=== PATIENT | male | born 1995 | race Caucasian/White ===

== ENCOUNTER → 2020-02-17 | Outpatient (CLI) | payer OTHER, SELFPAY ==
[2020-02-17 17:34] VITALS: BMI 27.2
== END | disposition home or self-care (01) ==
LOC: LABSPEC 02-18 10:14
PROVIDERS: Referring Provider Physician Assistant; Visit Provider Physician Assistant
DX: Z20.828 Contact with and (suspected) exposure to other viral communicable diseases (principal)
CPT/HCPCS: 87635; U0003

== ENCOUNTER 2021-07-29 18:07 | Emergency (ER) | payer OTHER, SELFPAY ==
[2021-07-29 18:08] VITALS: BP 170/116; PULSE 125; RESP 22; TEMP 36.4; O2SAT 96; BMI 28.5
--- NOTE | 2021-07-29 18:36 | EX.ED.DYSGE1 ---
HPI <RHETT Rose - Last Filed: 07/29/21 19:03> History of Present Illness Chief Complaint: General Illness Narrative Narrative: 26-year-old male with no significant medical history presents to the emergency department with complaints of 2 weeks of generalized fatigue, for the last 4 days, the patient has had nausea, vomiting, intermittent fever and chills. Patient also states today he felt dizzy, feels that he is dehydrated and is here for evaluation. Patient is currently not vaccinated for COVID-19 and or influenza. Patient denies any abdominal pain. Denies any recent antibiotic use, blood in stool or vomit. PFSH <RHETT Rose - Last Filed: 07/29/21 19:03> [facility] Home Medications amoxicillin-pot clavulanate [Augmentin] 1 tab PO BID 07/29/21 [History Last Taken Unknown] ondansetron 4 mg PO Q6H PRN #10 tab 07/29/21 [Rx Last Taken Unknown] Allergy/AdvReac Type Severity Reaction Status Date / Time No Known Allergies Allergy Verified 07/29/21 18:08 Surgical History (Updated 07/29/21 @ 18:16 by Alexia Alvarado) History of appendectomy Social History (Updated 02/17/20 @ 17:35 by Greg FISH, PA) Smoking Status: Never smoker ROS <RHETT Rose - Last Filed: 07/29/21 19:03> ROS ED ROS Narrative Constitutional: Negative for weight loss, weakness. Positive fever and chills Eyes: Negative for vision loss, vision change, double vision ENT: Negative for any sore throat, ear pain, congestion Cardiovascular: Negative for any chest pain, tightness, palpitations, racing heartbeat Respiratory: Negative for any cough, sputum production, hemoptysis, shortness of breath, shortness of breath on exertion, orthopnea Gastrointestinal: Negative for any abdominal pain, constipation, blood in stool, blood in vomit. Positive for nausea, vomiting, diarrhea : Negative for any urinary frequency, incontinence, dysuria, retention, blood in urine Muscle skeletal: Negative for any muscle joint pain, stiffness, arthralgias, neck pain, back pain. Positive for myalgias Neurological: Negative for any headache, dizziness, syncope, numbness or tingling Skin: Negative for any rashes, lumps, itching, abrasions, lacerations Psychiatric: Negative for any depression, anxiety, stress, suicidal ideation, homicidal ideation Hematologic: Negative for any easy bruising, excessive bruising, easy bleeding Allergies: Negative for any eczema, hives, rash EXAM <RHETT Rose - Last Filed: 07/29/21 19:03> Physical Exam Narrative Exam Narrative: Vital signs reviewed. HEET: Head normocephalic atraumatic, TMs clear bilaterally. Posterior pharynx is clear, dry mucous membranes. Nares clear bilaterally. Neck: Supple with no lymphadenopathy or tenderness. No signs of meningismus, negative jolt sign. Cardiac: Tachycardia no murmurs gallops or rubs, equal peripheral pulses bilaterally. Respiratory: Lungs clear to auscultation bilaterally. No chest tenderness. Abdomen: Soft, nontender, nondistended. No abdominal bruit or pulsatile masses. No hepatosplenomegaly Extremities: No peripheral edema, no signs of gross trauma or deformity. Active full range of motion of all extremities. Neuro: Cranial nerves II through XII intact, no focal neurological deficits. Skin: Clean dry and intact with no rash, purpura, petechiae, vesicles or pustules. Backslash flank: No CVA tenderness, no midline spinal tenderness, no deformity. Psych: Normal mood and affect. No SI, HI or acute psychosis. Const Vital Signs: 07/29/21 18:08 07/29/21 18:17 07/29/21 19:28 Temperature 97.5 F L Temperature Source Temporal Pulse Rate 125 H 88 Respiratory Rate 22 H 22 H Respiratory Effort Normal Non-Labored Respiratory Pattern Normal Blood Pressure 170/116 H 147/85 H Blood Pressure Mean 134 105 Pulse Ox 96 95 Oxygen Delivery Method Room Air Room Air 07/29/21 21:02 Temperature Temperature Source Pulse Rate 90 Respiratory Rate 18 Respiratory Effort Respiratory Pattern Blood Pressure 138/83 H Blood Pressure Mean Pulse Ox 96 Oxygen Delivery Method Positive well nourished and well developed General Appearance ED: well developed <Dr. Piyush Ro, - Last Filed: 07/30/21 01:34> Physical Exam Const Vital Signs: 07/29/21 18:08 07/29/21 18:17 07/29/21 19:28 Temperature 97.5 F L Temperature Source Temporal Pulse Rate 125 H 88 Respiratory Rate 22 H 22 H Respiratory Effort Normal Non-Labored Respiratory Pattern Normal Blood Pressure 170/116 H 147/85 H Blood Pressure Mean 134 105 Pulse Ox 96 95 Oxygen Delivery Method Room Air Room Air 07/29/21 21:02 Temperature Temperature Source Pulse Rate 90 Respiratory Rate 18 Respiratory Effort Respiratory Pattern Blood Pressure 138/83 H Blood Pressure Mean Pulse Ox 96 Oxygen Delivery Method [facility] <Orion Suarez MEDICAL LABORATORY SCIENTIST-C - Last Filed: 07/29/21 19:03> [facility] Narrative Medical decision making narrative: Patient appears well, patient appears nontoxic, vital signs are stable. Patient presents to the emergency department with 1 week of generalized malaise, fatigue, 3 to 4 days of nausea, vomiting, diarrhea. Patient did receive basic laboratory values, as well as IV fluids, IV Toradol, IV Zofran. Patient will be tested for influenza as well as COVID-19. Chest x-ray will be completed. Lab Data Labs: Laboratory Results - last 24 hr 07/29/21 07/29/21 18:45 18:45 WBC 10.6 RBC 5.26 Hgb 15.6 Hct 44.2 MCV 84.0 MCH 29.7 MCHC 35.3 RDW Std Deviation 34.9 L RDW Coeff of Estefany 11.4 L Plt Count 211 MPV 10.5 Immature Gran % (Auto) 0.700 Neut % (Auto) 76.1 H Lymph % (Auto) 8.7 L [place] % (Auto) 13.5 H Eos % (Auto) 0.5 Baso % (Auto) 0.5 Absolute Neuts (auto) 8.1 H Absolute Lymphs (auto) 0.92 Nucleated RBC % 0 Sodium 134 L Potassium 3.5 Chloride 104 Carbon Dioxide 21.0 Anion Gap 9 BUN 14 Creatinine 0.95 Estim Creat Clear Calc 147.20 Est GFR (MDRD) Af Amer 125 Est GFR (MDRD) Non-Af 104 BUN/Creatinine Ratio 14.8 Glucose 111 H Calcium 9.2 Radiography Diagnostic Testing: Clinical Impression(s) from Imaging Studies Chest X-Ray 07/29/21 18:50 IMPRESSION: Nonacute portable x-ray examination of the chest. Electronically Signed: Cruzito Berkowitz MD (Brooks) at 19:05 EDT , <Dr. Piyush Ro, DO - Last Filed: 07/30/21 01:34> [facility] Narrative Medical decision making narrative: Attending note: Patient seen and evaluated with director of event management. I perform my own [id number] evaluation. I agree with the plan of work-up. 2 weeks upper respiratory illness coughing improved. However vomiting diarrhea past 4 days. No recent antibiotics. Exam dry mucosal membranes. Soft abdomen. Nontoxic. Lungs are clear. Heart is tachycardic. IV fluids given basic labs were normal. Rapid flu and COVID-negative. Chest x-ray 1 view reviewed by myself and read by radiology shows no acute process. Clinically feeling better on reevaluation. Tolerating oral fluids. Prescription for Zofran to use as needed. Follow-up as an outpatient with return precautions. All questions were answered. Lab Data Attestation: I reviewed the patient's lab results. Labs: Laboratory Results - last 24 hr 07/29/21 07/29/21 18:45 18:45 WBC 10.6 RBC 5.26 Hgb 15.6 Hct 44.2 MCV 84.0 MCH 29.7 MCHC 35.3 RDW Std Deviation 34.9 L RDW Coeff of Estefany 11.4 L Plt Count 211 MPV 10.5 Immature Gran % (Auto) 0.700 Neut % (Auto) 76.1 H Lymph % (Auto) 8.7 L [place] % (Auto) 13.5 H Eos % (Auto) 0.5 Baso % (Auto) 0.5 Absolute Neuts (auto) 8.1 H Absolute Lymphs (auto) 0.92 Nucleated RBC % 0 Sodium 134 L Potassium 3.5 Chloride 104 Carbon Dioxide 21.0 Anion Gap 9 BUN 14 Creatinine 0.95 Estim Creat Clear Calc 147.20 Est GFR (MDRD) Af Amer 125 Est GFR (MDRD) Non-Af 104 BUN/Creatinine Ratio 14.8 Glucose 111 H Calcium 9.2 Radiography Chest X-Ray - ED: 1 View, Read by ED Physician and Read by Radiologist Diagnostic Testing: Clinical Impression(s) from Imaging Studies Chest X-Ray 07/29/21 18:50 IMPRESSION: Nonacute portable x-ray examination of the chest. Electronically Signed: Cruzito Berkowitz MD (Brooks) at 19:05 EDT Reading Location ID and State: [facility] / [place] , Service support , Discharge Plan Triage Chief Complaint: General Illness ED Midlevel Provider: Orion Suarez ED Provider: Piyush Ro Dx/Rx/DC Orders Clinical Impression: URI (upper respiratory infection), Nausea vomiting and diarrhea Instructions: ED URI, Viral, No Abx (Adult), ED Vomiting and Diarrhea ... Prescriptions: New ondansetron 4 mg tablet,disintegrating 4 mg PO Q6H PRN (Reason: nausea and vomiting) Qty: 10 RF: 0 No Action amoxicillin-pot clavulanate [Augmentin] 875-125 mg Tablet 1 tab PO BID RF: 0 Primary Care Provider: Care Physician,No Primary Referrals: Anita Hart [NON-STAFF] - 3-5 Days if not improving Care Physician,No Primary [Primary Care Provider] - Activity Restrictions/Additional Instructions: Labs stable chest x-ray negative COVID and influenza negative. Continue oral fluids. Zofran as needed. Disposition Disposition: Home, Self Care Discharge Date/Time: 07/29/21 21:05
[2021-07-29] MEDS: Ondansetron 4 MG/2 ML Vial IV (18:43)
[2021-07-29] MEDS: 0.9% Normal Saline 1,000 ML 1000 ML IV (18:43)
[2021-07-29] MEDS: Ketorolac 15 MG/ML Vial IV (18:43)
--- NOTE | 2021-07-29 18:50 | RAD_ITS ---
STUDY: X-RAY CHEST REASON FOR EXAM: Male, 26 years old. cough TECHNIQUE: AP COMPARISON: 08/17/2016 FINDINGS: EKG leads project over the chest. The lungs are clear and expanded. There is no demonstrated pleural abnormality. Normal size heart. Normal mediastinum and freda. Normal visualized pulmonary arteries. Normal visualized aortic arch and descending thoracic aorta. Normal visualized thoracic spine. Normal visualized ribs, clavicles, and shoulders. There is no demonstrated abnormality of the visualized soft tissue structures of the upper abdomen. RAD/Chest 1 View (Portable) IMPRESSION: Nonacute portable x-ray examination of the chest. Electronically Signed: Cruzito Berkowitz MD (Brooks) at 19:05 EDT ,
[2021-07-29 18:55] LABS: Absolute Lymphocyte Count 0.92 X10^3/uL (0.83-4.51); Absolute Neutrophil Count 8.1 X10^3/uL (2.0-7.7); Basophil# 0.05 X10^3/uL; Basophil% 0.5 % (0-1); Eosinophil# 0.05 X10^3/uL; Eosinophils% 0.5 % (0-5); Hematocrit 44.2 % (40-54); Hemoglobin 15.6 g/dL (13.0-16.5); Lymphocyte # 0.92 X10^3/ul (0.83-4.51); Lymphocyte % 8.7 % (19-41); Mean Corp Hgb Conc 35.3 g/dL (32-36); Mean Corpuscular Hgb 29.7 pg (27.0-32.0); Mean Platelet Vol. 10.5 fl (6.2-12.0); Monocyte# 1.43 X10^3/uL; Monocyte% 13.5 % (0-10); NRBC Flagged by Analyzer 0 % (0-5); Neutrophil % 76.1 % (47-70); Platelet Count 211 K/mm3 (150-450); RBC Distribution Width CV 11.4 % (11.6-14.6); RBC Distribution Width SD 34.9 fl (35.1-43.9); Red Blood Count 5.26 M/mm3 (4.6-6.2); White Blood Count 10.6 K/mm3 (4.4-11.0)
[2021-07-29 19:12] LABS: Anion Gap 9 (5-15); BUN 14 mg/dL (7-18); BUN/Creat Ratio 14.8 RATIO (10-20); Calcium,Total 9.2 mg/dL (8.5-10.1); Chloride 104 mmol/L (98-107); Creatinine, Serum 0.95 mg/dL (0.70-1.30); EST Glomerular Filtration Rate 104 mL/min (>60); Est Glom Filt Rate - Afr Amer 125 mL/min (>60); Glucose 111 mg/dL (74-106); Potassium 3.5 mmol/L (3.5-5.1); Sodium Level 134 mmol/L (136-145)
[2021-07-29 19:28] VITALS: BP 147/85; PULSE 88; RESP 22; O2SAT 95
[2021-07-29 21:02] VITALS: BP 138/83; PULSE 90; RESP 18; O2SAT 96
== END 2021-07-29 21:05 | disposition home or self-care (01) ==
PROVIDERS: Nurse Practitioner; Emergency Provider Emergency Medicine; Visit Provider Emergency Medicine
DX: J06.9 Acute upper respiratory infection, unspecified (principal); R11.2 Nausea with vomiting, unspecified; R19.7 Diarrhea, unspecified; Z20.822 Contact with and (suspected) exposure to COVID-19; R42 Dizziness and giddiness; R53.81 Other malaise
CPT/HCPCS: 71045; 80048; 85025; 87428; 96361; 96374; 96375; 99284; J7030; A4216; J2405

== ENCOUNTER 2021-07-31 19:41 | Emergency (ER) | payer OTHER, SELFPAY ==
[2021-07-31 19:42] VITALS: BP 144/98; PULSE 111; RESP 18; TEMP 36.6; O2SAT 95; BMI 28.5
[2021-07-31 19:57] VITALS: BP 144/98; PULSE 111; RESP 18; TEMP 37.8; O2SAT 95
--- NOTE | 2021-07-31 19:57 | EX.ED.DYSGE1 ---
HPI History of Present Illness Chief Complaint: General Illness Detail of Chief Complaint: Not feeling well for about 3 weeks Informant: patient Narrative Narrative: Patient was seen urgency department complaint not feeling well for the last 3 weeks. Patient states that he has had a cough for about 3 weeks. He subsequently developed vomiting and diarrhea and was seen in the emergency department 2 days ago. Patient had unremarkable work-up including negative influenza and COVID testing. Patient states he did a telehealth visit with a physician 4 days ago and was started on amoxicillin. Patient states over the last 2 days he has had gingival swelling and sore throat with increasing shortness of breath. His diarrhea is improved but he is not been eating for the last week. Patient was given Zofran during his last ER visit and his vomiting is improved. He denies sick contacts. He had COVID 1 year ago. Prior similar symptoms: No PFSH PFSH Medical History no medical history Home Medications amoxicillin-pot clavulanate [Augmentin] 1 tab PO BID 07/29/21 [History Last Taken Unknown] ondansetron 4 mg PO Q6H PRN #10 tab 07/29/21 [Rx Last Taken Unknown] ondansetron 4 mg PO Q8H PRN PRN #10 tab 07/31/21 [Rx Last Taken Unknown] Allergy/AdvReac Type Severity Reaction Status Date / Time No Known Allergies Allergy Verified 07/31/21 19:45 Surgical History (Updated 07/29/21 @ 18:16 by Alexia Alvarado) History of appendectomy Social History (Updated 02/17/20 @ 17:35 by Greg FISH, PA) Smoking Status: Never smoker ROS ROS ED Constitutional Constitutional ED: Reports systems reviewed and no addt'l complaints, except as documented; Denies body ache(s), change in weight or chills Eyes Eyes: Denies acute decrease in peripheral vision, change in vision, double vision or loss of vision ENT ENT ED: Reports none, sore throat and other Details: Gingival swelling ; Denies ear pain, lip swelling, loss taste/smell, neck pain or otalgia Cardiovascular Cardiovascular: Reports none; Denies abdominal pain, chest pain with activity, leg edema, lightheadedness, palpitations, rapid heart rate or syncope Respiratory/Chest Respiratory/Chest: Reports none, cough and dyspnea; Denies change in mental status, dry cough, hemoptysis, shortness of breath at rest or shortness of breath with exertion Gastrointestinal Gastrointestinal: Reports none; Denies abdominal pain, change in stool character, diarrhea, hematemesis, hematochezia, melena, rectal bleeding or vomiting Genitourinary Genitourinary ED: Reports none; Denies abdominal discomfort, anuria, dysuria, genital pain or polyuria Musculoskeletal Musculoskeletal: Reports none and myalgias; Denies arthralgias, back pain, difficulty walking, extremity pain or muscle weakness Integumentary Reports none; Denies abscess or rash Neurologic Neurologic: Reports none and headache(s); Denies abnormal gait, confusion, focal weakness, frequent falls, loss of vision, numbness, paresthesias, radicular pain, vertigo or weakness Psychiatric Psychiatric: Reports systems reviewed and no addt'l complaints, except as documented and none; Denies behavioral changes, confusion, difficulty concentrating, hallucinations, suicidal ideation, tactile hallucinations or visual hallucinations Endocrine Endocrinology: Denies none, cold intolerance, excessive sweating, fatigue or heat intolerance Hematologic/Lymphatic Hematologic/Lymphatic: Reports none; Denies anemia, easy bleeding or easy bruising Allergic/Immunologic Allergic/Immunologic ED: Denies as per HPI, none, lip swelling, mouth swelling, throat swelling, tongue swelling or hives EXAM Physical Exam Const Vital Signs: 07/31/21 19:42 07/31/21 19:57 Temperature 97.8 F 100.1 F H Temperature Source Temporal Oral Pulse Rate 111 H 111 H Respiratory Rate 18 18 Blood Pressure 144/98 H 144/98 H Blood Pressure Mean 113 113 Pulse Ox 95 95 Oxygen Delivery Method Room Air Room Air Positive well nourished and well developed General Appearance ED: well developed and NAD HEENT Reports TM's clear and moist mucous membranes HEENT Narrative: Patient with swelling of his gingiva and viral ulcerations of the soft palate and oropharynx. normocephalic and atraumatic; Negative for trauma or tenderness Tympanic Membrane ED: Yes TM's clear Eyes PERRL and EOMs intact bilaterally General Eye ED: Negative for pale conjunctiva or scleral icterus Neck no lymphadenopathy, supple and no JVD General: Negative for tenderness Chest Wall inspection of chest normal and palpation of chest normal Chest: Negative for tenderness Resp normal respiratory effort and clear to auscultation bilaterally Effort and Inspection: Negative for respiratory distress or pain with movement Auscultation: Negative for rhonchi, wheezes or diminished lung sounds Cardio regular rhythm, S1 normal heart sound, S2 normal heart sound and no murmurs Rate: tachycardic Peripheral Pulses: pulses 2+ throughout GI normal to inspection, nondistended, normoactive bowel sounds, soft to palpation, non-tender, non-distended and no masses Back/Spine no CVA tenderness and no thoracic nor lumbar tenderness Extremity normal to inspection General Extremety ED: Negative for edema General Extremity: Negative for edema Neuro oriented x3, CN's II-XII intact bilaterally, no sensory deficits noted and gait normal Sensorium / Orientation: awake, alert, oriented to person, oriented to place and oriented to time Motor Exam: strength 5/5 throughout and strength abnormal Psych mental status grossly normal Skin no rashes or lesions noted and no wounds Skin Narrative: No rash on hands or feet noted MDM MDM MDM Narrative Medical decision making narrative: The line established on arrival. Patient was given a dose of Decadron and Toradol. Patient had symptomatic relief with that. Patient was given a dose of BMX solution to swish and spit. Lab work-up was unremarkable and monoscreen was negative. At this point I suspect likely viral etiology of his symptoms. Repeat chest x-ray also was negative. Patient advised to push fluids. I will send him home with BMX solution to swish and spit. Lab Data Attestation: I reviewed the patient's lab results. Labs: Laboratory Results - last 24 hr 07/31/21 07/31/21 07/31/21 20:06 20:06 20:06 WBC 9.5 RBC 5.12 Hgb 15.0 Hct 43.1 MCV 84.2 MCH 29.3 MCHC 34.8 RDW Std Deviation 34.7 L RDW Coeff of Estefany 11.2 L Plt Count 247 MPV 10.2 Immature Gran % (Auto) 1.300 H Neut % (Auto) 67.3 Lymph % (Auto) 16.4 L [place] % (Auto) 13.8 H Eos % (Auto) 0.5 Baso % (Auto) 0.7 Absolute Neuts (auto) 6.4 Absolute Lymphs (auto) 1.56 Nucleated RBC % 0 Sodium 138 Potassium 3.7 Chloride 104 Carbon Dioxide 23.0 Anion Gap 11 BUN 15 Creatinine 0.83 Estim Creat Clear Calc 168.49 Est GFR (MDRD) Af Amer 146 Est GFR (MDRD) Non-Af 121 BUN/Creatinine Ratio 18.1 Glucose 101 Calcium 9.3 Total Bilirubin 0.90 AST 35 ALT 56 Alkaline Phosphatase 80 Total Protein 7.8 Albumin 3.5 Globulin 4.3 H Albumin/Globulin Ratio 0.8 L Monoscreen Negative Radiography Chest X-Ray - ED: 1 View Diagnostic Testing: Clinical Impression(s) from Imaging Studies Chest X-Ray 07/31/21 20:25 IMPRESSION: Nonacute portable x-ray examination of the chest. Electronically Signed: Cruzito Berkowitz MD (Brooks) at 20:45 EDT , 1 view chest x-ray obtained interpreted by myself as no acute disease process. Radiology in agreement. Discharge Plan Triage Chief Complaint: General Illness ED Provider: Parker Nye Dx/Rx/DC Orders Clinical Impression: Gingivostomatitis, Acute viral syndrome Instructions: ED Gingivostomatitis (Child), ED Viral Syndrome (Adult) Prescriptions: New ondansetron [ondansetron] 4 MG tablet 4 mg PO Q8H PRN PRN (Reason: Nausea) Qty: 10 RF: 0 No Action amoxicillin-pot clavulanate [Augmentin] 875-125 mg Tablet 1 tab PO BID RF: 0 ondansetron 4 mg tablet,disintegrating 4 mg PO Q6H PRN (Reason: nausea and vomiting) Qty: 10 RF: 0 Primary Care Provider: Care Physician,No Primary Referrals: Ramakrishna Camacho MD [STAFF PHYSICIAN] - 3-5 Days Care Physician,No Primary [Primary Care Provider] - Disposition Disposition: Home, Self Care
[2021-07-31] MEDS: 0.9% Normal Saline 1,000 ML 1000 ML IV (20:06)
[2021-07-31] MEDS: Ketorolac 30 MG/ML Syringe IV (20:06)
[2021-07-31] MEDS: dexAMETHasone 10 MG/ML Vial IV (20:06)
[2021-07-31 20:21] LABS: Absolute Lymphocyte Count 1.56 X10^3/uL (0.83-4.51); Absolute Neutrophil Count 6.4 X10^3/uL (2.0-7.7); Basophil# 0.07 X10^3/uL; Basophil% 0.7 % (0-1); Eosinophil# 0.05 X10^3/uL; Eosinophils% 0.5 % (0-5); Hematocrit 43.1 % (40-54); Lymphocyte # 1.56 X10^3/ul (0.83-4.51); Lymphocyte % 16.4 % (19-41); Mean Corp Hgb Conc 34.8 g/dL (32-36); Mean Corpuscular Hgb 29.3 pg (27.0-32.0); Mean Corpuscular Volume 84.2 fL (80-94); Mean Platelet Vol. 10.2 fl (6.2-12.0); Monocyte# 1.32 X10^3/uL; Monocyte% 13.8 % (0-10); NRBC Flagged by Analyzer 0 % (0-5); Neutrophil # 6.42 X10^3/uL (2.7-7.7); Neutrophil % 67.3 % (47-70); Platelet Count 247 K/mm3 (150-450); RBC Distribution Width CV 11.2 % (11.6-14.6); RBC Distribution Width SD 34.7 fl (35.1-43.9); Red Blood Count 5.12 M/mm3 (4.6-6.2); White Blood Count 9.5 K/mm3 (4.4-11.0)
--- NOTE | 2021-07-31 20:25 | RAD_ITS ---
STUDY: X-RAY CHEST REASON FOR EXAM: Male, 26 years old. dyspnea, cough TECHNIQUE: AP COMPARISON: None. FINDINGS: The lungs are clear and expanded. There is no demonstrated pleural abnormality. Normal size heart. Normal mediastinum and freda. Normal visualized pulmonary arteries. Normal visualized aortic arch and descending thoracic aorta. Normal visualized thoracic spine. Normal visualized ribs, clavicles, and shoulders. There is no demonstrated abnormality of the visualized soft tissue structures of the upper abdomen. RAD/Chest 1 View (Portable) IMPRESSION: Nonacute portable x-ray examination of the chest. Electronically Signed: Cruzito Berkowitz MD (Brooks) at 20:45 EDT ,
[2021-07-31 20:41] LABS: Internal QC Validated? YES +Cl - CLEAR BKGD; Monotest Negative (Negative)
[2021-07-31 20:44] LABS: ALB/GLOB Ratio 0.8 RATIO (0.9-2.4); AST(SGOT) 35 U/L (15-37); Alanine Aminotransfer ALT/SGPT 56 U/L (16-61); Albumin, Serum 3.5 g/dL (3.2-5.0); Alkaline Phosphatase 80 U/L (45-117); Anion Gap 11 (5-15); BUN 15 mg/dL (7-18); BUN/Creat Ratio 18.1 RATIO (10-20); Calcium,Total 9.3 mg/dL (8.5-10.1); Chloride 104 mmol/L (98-107); Creatinine, Serum 0.83 mg/dL (0.70-1.30); EST Glomerular Filtration Rate 121 mL/min (>60); Est Glom Filt Rate - Afr Amer 146 mL/min (>60); Estimated Creatinine Clearance 168.49 ml/min; Globulin 4.3 g/dL (2.2-4.2); Glucose 101 mg/dL (74-106); Potassium 3.7 mmol/L (3.5-5.1); Protein, Total 7.8 g/dL (6.4-8.2); Sodium Level 138 mmol/L (136-145)
[2021-07-31] MEDS: BMX LIQUID 180 ML 10 ML PO (21:21)
== END 2021-07-31 21:24 | disposition home or self-care (01) ==
PROVIDERS: Emergency Provider Emergency Medicine; Visit Provider Emergency Medicine
DX: K05.10 Chronic gingivitis, plaque induced (principal); B34.9 Viral infection, unspecified
CPT/HCPCS: 71045; 80053; 85025; 86308; 87040; 96361; 96374; 96375; 99284; J7030; A4216

== ENCOUNTER → 2022-03-18 | Outpatient (CLI) | payer OTHER, SELFPAY ==
--- NOTE | 2022-03-18 15:59 | RAD_ITS ---
STUDY: X-RAY - RIGHT KNEE REASON FOR EXAM: Male, 26 years old. Knee pain. Oneill a pop at work. Medial knee pain extending under the patella. TECHNIQUE: 4 view(s) of the knee. COMPARISON: None. FINDINGS: Normal visualized distal femur. Normal visualized proximal tibia and fibula. Normal proximal tibiofibular articulation. There is no acute fracture, dislocation or destructive osseous pathology. Normal medial femorotibial compartment. Normal lateral femorotibial compartment. Normal patellofemoral articulation. There is no demonstrated joint effusion. The soft tissue structures are unremarkable. RAD/Knee 4 or More Views IMPRESSION: No acute fracture or dislocation. Electronically Signed: Clyde Brown DO at 20:33 EST Reading Location ID and State: [id number] Tel [phone], Service support ,
== END | disposition home or self-care (01) ==
LOC: MTRAD 15:58
PROVIDERS: PCP Family Medicine; Referring Provider Family Medicine; Visit Provider Family Medicine
DX: M25.561 Pain in right knee (principal)
CPT/HCPCS: 73564

== ENCOUNTER → 2022-06-14 | Outpatient (CLI) | payer OTHER, SELFPAY ==
--- NOTE | 2022-06-14 17:48 | MRI_ITS ---
EXAM: MR RIGHT LOWER EXTREMITY WITHOUT INTRAVENOUS CONTRAST, KNEE CLINICAL INDICATION: KNEE PAIN, and quot;popped and quot; TECHNIQUE: Multiplanar and multisequence MR images of the right knee without intravenous contrast. This report was created using [employer] technology. COMPARISON: None. FINDINGS: BONES/JOINTS: See below. EXTENSOR MECHANISM: Unremarkable. MEDIAL MENISCUS: Longitudinal horizontal oblique tear of the posterior horn of the medial meniscus. LATERAL MENISCUS: Unremarkable. MEDIAL CAPSULE/SUPPORTING STRUCTURES: Unremarkable. Intact. LATERAL CAPSULE/SUPPORTING STRUCTURES: Unremarkable. Lateral collateral ligamentous complex, inclusive of the popliteal tendon, are intact. ANTERIOR CRUCIATE LIGAMENT: Unremarkable. Intact. POSTERIOR CRUCIATE LIGAMENT: Unremarkable. Intact. MUSCLES: Unremarkable. CARTILAGE: Unremarkable. Intact. FLUID: Unremarkable. No joint effusion. MRI/Lower Ext Joint Only (Routine) IMPRESSION: 1. Longitudinal horizontal oblique tear of the posterior horn of the medial meniscus. 2. No other significant internal derangement. Electronically Signed: Malcom Dickson MD at 21:21 EDT ,
== END | disposition home or self-care (01) ==
PROVIDERS: PCP Family Medicine; Referring Provider Family Medicine; Visit Provider Family Medicine
DX: M25.561 Pain in right knee (principal)
CPT/HCPCS: 73721

== ENCOUNTER 2023-02-01 05:58 | Day surgery (SDC) | payer OTHER, SELFPAY ==
[2023-02-01] MEDS: Lactated Ringers 1,000 ML 15 ML IV (06:41)
[2023-02-01 06:45] VITALS: BP 121/78; PULSE 71; RESP 16; TEMP 36.7; O2SAT 97; BMI 30.6
--- NOTE | 2023-02-01 07:01 | HP.PCM_ITS ---
HPI - General HPI Narrative ADAN AYERS, is a 27 M who presents right knee arthroscopy, medial meniscus repair or partial meniscectomy. No changes to h and p. Marked the right knee. OK to proceed. RAB discussed and narcotic counselling. No further concerns. MR#: [id number] Acct: [id number] Name: ADAN AYERS Rep #: [id number] : 1995 Provider: Dr. Alberto Pride MD Age/Sex: 27/M Location: [facility] [place] [facility] Status: Signed Intake Vital Signs 06/17/2309:28 Height 6 ft 4 in Intake Visit Reasons: RIGHT KNEE Is patient in pain?: Yes Allergies No Known Allergies Allergy (Verified 10/13/22 15:45) Medications amoxicillin 875 mg-potassium clavulanate 125 mg tablet 1 tab PO BID 07/29/21 [History Confirmed 10/13/22] ondansetron 4 mg disintegrating tablet 4 mg PO Q6H PRN nausea and vomiting #10 tabs 07/29/21 [Rx Confirmed 10/13/22] ondansetron 4 mg disintegrating tablet 4 mg PO Q8H PRN PRN Nausea #10 tabs 07/31/21 [Rx Confirmed 10/13/22] PFSH Medical History Right knee pain Tear of medial meniscus of right knee Surgical History History of appendectomy Social History Smoking Status: Never smoker HPI RIGHT KNEE Details: Parts of this documentation were recorded by a scribe, this documentation accurately reflects the service provided and the decisions made by me, Dr. Alberto Pride MD 10/13/22 1311. ADAN AYERS is a 27 year old M here today for follow-up right knee pain with medial meniscus tear traumatic. The patient wishes to go to surgery and he is here to sign the consent form today. No changes. 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 We went over the postoperative recovery he is quite surprised that this would take at least 6 weeks in a hinged knee brace unlocked 0 to 90 degrees with crutches weightbearing as tolerated in extension and up to 3 months before regaining the full range of motion back but in this young patient with a repairable tear that would be my preferred option here. The other option would be of course be partial meniscectomy less ideal as well as intra-articular cortisone injection again this to be less ideal and not addressing the anatomic cause of the problem, plus PT bracing or other options. Patient booked and consented for right knee arthroscopy, medial meniscus repair or partial meniscectomy Pros and cons risks and benefits were discussed with the patient including but not limited to infection, pain, stiffness, bleeding, damage to surrounding structures, neurovascular injury, recurrence or retear, failure or wear of hardware or fixation, instability, fracture, deep vein thrombosis and pulmonary embolism, anesthetic risks, , patient dissatisfaction, need for further surgery and other risks. Patient understood and wished to proceed with surgery, and signed the informed consent documentation. [facility] Medical History (Updated 01/18/23 @ 10:10 by Sherry Mcknight) Alcohol use History of edema Right knee pain Tear of medial meniscus of right knee Home Medications cetirizine 10 mg capsule (Allergy Relief (cetirizine)) 10 mg PO DAILY PRN allergy symptoms 01/18/23 [History Last Taken Unknown] fexofenadine 180 mg tablet (Aller-Fex) 180 mg PO DAILY 01/18/23 [History Last Taken Unknown] ibuprofen 200 mg tablet (Advil) 200 mg PO Q6H 01/18/23 [History Last Taken Unknown] Allergy/AdvReac Type Severity Reaction Status Date / Time No Known Allergies Allergy Verified 01/18/23 10:04 Surgical History History of appendectomy Social History Smoking Status: Never smoker Vital Signs Vital Signs Vital Signs: 02/01/23 06:43 02/01/23 06:45 Temperature 98.1 F Temperature Source Temporal Pulse Rate 71 Respiratory Rate 16 Respiratory Pattern Normal Blood Pressure 121/78 H Blood Pressure Mean 92 Blood Pressure Source Monitor Blood Pressure Position Semi-Fowlers Blood Pressure Location Left Arm Pulse Ox 97 Oxygen Delivery Method Room Air Weight Weight: 251 lb 5.231 oz Body Mass Index (BMI) 30.6
[2023-02-01] MEDS: Cefazolin 2 GM in 0.9% Normal Saline (100mL Bag) 100 ML IV (07:28)
[2023-02-01] MEDS: Epinephrine (1 mg/ml) 1 MG/ML VIAL (08:00)
[2023-02-01] MEDS: Bupivacaine 0.25% 30 ML Vial (08:32)
--- NOTE | 2023-02-01 08:48 | DCINST_ITS ---
Discharge Instructions Diet Discharge Diet: No restrictions Activity Discharge Activity: Use Crutches Weight Bearing Status: Weight bearing as tolerated Keep extremity elevated above heart level: Operative Extremity Dressing / Incision Call your doctor if your incision/area has: Continuous Slow Oozing, Sudden Increased Bleeding, Increased Pain/ Swelling, Increased Redness, Foul Smelling Discharge and Swelling at the incision site Change Dressing in: leave in place till F/U Follow Up Care Please Follow Up With: Alberto Pride MD When: 2 days Test Results: Test results from this visit will be discussed in further detail at your follow- up appointment, if applicable. Discharge Plan Admission Attending Provider: Alberto Pride Primary Care Provider: Heri Gastelum Discharge Orders/Prescriptions Prescriptions: New oxycodone-acetaminophen [Endocet] 5-325 mg tablet 1 tab PO Q4H MDD 6 PRN (Reason: pain) 5 Days Qty: 20 0RF No Action Allergy Relief (cetirizine) 10 mg capsule 10 mg PO DAILY PRN (Reason: allergy symptoms) fexofenadine [Aller-Fex] 180 mg tablet 180 mg PO DAILY ibuprofen [Advil] 200 mg tablet 200 mg PO Q6H Referrals / Follow Up: Heri Gastelum MD [Primary Care Provider] - Alberto Pride MD [Med Staff - Active Staff] - Disposition Disposition (needs filled in before D/C Order can be placed): Home, Self Care
--- NOTE | 2023-02-01 08:50 | OP.PCM_ITS ---
Problems Associated Problem List Diagnoses (1) Tear of medial meniscus of right knee: Report of Operation Date of Procedure: 02/01/23 Pre-Operative Diagnosis: right knee medial meniscus tear Post-Operative Diagnosis: same Surgery/Procedure Performed:: right knee arthroscopy medial meniscus repair Surgeon: Alberto Pride Type of Anesthesia: General and Local Anesthesiologist: Ramakrishna Clemens Estimated Blood Loss (mL): 25 Description of Procedure: Patient brought to the operating room theater. Placed supine on the table. Stress positioner to the patient's right side. SCD on the nonoperative leg. 34 inch tourniquet applied to the right thigh appropriately padded. General anesthesia induced. 2 g IV Ancef administered prior to the start of the procedure. Lower extremity prepped and draped in the usual sterile fashion with chlorhexidine-based prep solution allowing over 3 minutes drying time prior to draping. Preoperative timeout performed to confirm the site patient and the surgery. Began by elevating the limb inflating the tourniquet to 250 mmHg. Made standard anterolateral and anteromedial arthroscopy portals. Did a full diagnostic arthroscopy. Cartilage in all 3 compartments was normal. No loose body. Lateral meniscus as well as ACL and PCL appeared normal. Medial side plica removed and debrided that. There was as described on the MRI horizontal tear of the medial meniscus near the posterior horn this was unstable. I used a meniscal rasp to stimulate healing on both sides of the tear. This was reducible. Tight medial compartment so 'pie crusted' the proximal MCL to gain some room. I used Arthrex fiber stitch all suture meniscus repair device with 2- 0 suture. I did 2 vertical mattress sutures at the tear. Tear was stable and solid. Arthroscopy pictures taken and saved onto the system throughout the case. Tourniquet let down. Skin cleaned with wet and dry dressing. 10 cc of quarter percent bupivacaine around the incision sites. 3-0 Monocryl used to close the incisions. Steri-Strips Adaptic 4 x 4 gauze and ABD dressings with loosely wrapped Eric wrap placed onto the knee. Hinged knee brace full extension locked placed. Patient woken up from the general anesthetic transferred off the operating table and taken to postanesthetic in stable condition. All sponge needle instrument counts were correct no complications. Plan for the patient weightbearing as tolerated on crutches for 6 weeks and full extension and passive range of motion 0 to 90 degrees with physical therapy. The patient understood cpt 39103 Complications none Admit VTE Documentation VTE Present on Admission: No VTE Mechan Device Prophylaxis: SCD's VTE Pharm Prophylaxis ordered?: No Reason prophylaxis not ordered:: Treatment Not Indicated Procedures Musculoskeletal [id number]-29xxx: Other Procedure See Report
[2023-02-01 08:51] VITALS: BP 121/78; BP 88/58; PULSE 91; RESP 18; TEMP 36.6; O2SAT 92
[2023-02-01 09:00] VITALS: BP 121/78; BP 138/71; PULSE 92; RESP 18; O2SAT 100
[2023-02-01 09:14] VITALS: BP 121/78; BP 122/72; PULSE 79; RESP 18; O2SAT 100
[2023-02-01 09:27] VITALS: BP 121/78; BP 128/76; PULSE 66; RESP 18; O2SAT 96
[2023-02-01 10:03] VITALS: BP 121/78
== END 2023-02-01 10:11 | disposition home or self-care (01) ==
LOC: SDC 05:58 → AC 05:59
PROVIDERS: PCP Family Medicine; Referring Provider Orthopaedic Surgery Sports Medicine; Visit Provider Orthopaedic Surgery Sports Medicine
PROC: (CPT 29870; principal; 2023-02-01 07:10)
DX: S83.241A Other tear of medial meniscus, current injury, right knee, initial encounter (principal); X58.XXXA Exposure to other specified factors, initial encounter; Z79.899 Other long term (current) drug therapy
CPT/HCPCS: 29881; 01400; C1713; J7120; J2405

== ENCOUNTER → 2023-03-25 | Outpatient (CLI) | payer OTHER, SELFPAY ==
--- OUTSIDE RECORDS SUMMARY | 2023-03-25 06:58 | XMS RPT_ITS | CCD ---
Author Name Unknown Address [address] [place] [address] Organization [facility] Care Team Providers Care Claims Analyst Name Role Phone Pcp, No Primary Care Provider Vladislavabl e Unavailable Primary Care Provider THOMAS Rose Referring STACEY Brandon Attending Unavailable THOMAS MARIE Referring Suzi NEGRON, STACEY Attending Unavailable THOMAS MARIE Referring Suzi NEGRON, STACEY Attending Unavailable THOMAS MARIE Referring Unavailabl e Allergies Allergy Classification Reported Allergen(s) Allergy Type Date of Onset Reaction(s) Facility (4 sources) Environmental allergies [Other] Propensity to adverse reactions 8 [facility] (1 source) OTHER; Translations: [OTHER] Propensity to adverse reactions (disorder) 8 [facility] Repository Medications Completed/Discontinued Medications Medication Drug Class(es) Dates Sig (Normalized) Sig (Original) [id number] 200 actuat albuterol 0.09 mg/actuat metered dose inhaler (4 sources) beta2-Adrenergic Agonist Start: 01-11-2011 take 2 puff(s) by inhalation every four hours as needed albuterol HFA (VENTOLIN HFA) 90 mcg/Actuation INHALATION inhaler Indications: Exercise induced bronchospasm Inhale 2 Puffs as instructed every 4 hours as needed. And 15 minutes pre exercise. Use with spacer. 1 Inhaler 2 01/11/2011 Active Problems Problem Classification Problem Date Documented Da te Episodic/Chronic Asthma (4 sources) Unspecified asthma, uncomplicated; Translations: [Asthma, unspecified type, unspecified] 02-21-2011 Chronic Other non-traumatic joint disorders (8 sources) Pain in right knee; Translations: [Pain in joint, lower leg] Onset: 04-18-2022 Episodic Results Test Name Value Interpretation Reference Range Facil ity Encounters Encounter Date Encounter Type Care Provider Facility Start: 05-23-2022 End: 05-23-2022 ambulatory THOMAS MARIE Facility:[facility] Start: 05-23-2022 End: 05-23-2022 ambulatory Stacey Negron PT Work Phone: [facility] Physical Therapy Plan of Treatment Date Care Activity Detail Author Start: 03-20-2022 DEPRESSION ASSESSMENT DEPRESSION ASS ESSMENT [facility] Start: 11-18-2021 Influenza vaccination INFLUENZA (#1) [facility] Start: 06-09-2020 Urine microalbumin profile DTA P,TDAP,TD (6 - Td or Tdap) [facility] Start: 05-26-2015 HEPATITIS C SCREENING HEPATITIS C SC REENING [facility] Start: 05-26-2015 HIV SCREENING HIV SCREENING [facility] Start: 05-26-2011 PEDS TO ADULT TRANSI TION ANNUAL ASSESSMENT PEDS TO ADULT TRANSITION ANNUAL ASSESSMENT [facility] Start: 2009 PEDS TO ADULT TRANSI TION INITIAL DISCUSSION PEDS TO ADULT TRANSITION INITIAL DISCUSSION [facility] Start: 2008 HPV VACCINE (1 - Mal e 2-dose series) HPV VACCINE (1 - Male 2-dose series) [facility] Start: 1997 COVID-19 VACCINE (#1) COVID-19 VACCI NE (#1) [facility] Immunizations Immunization Date Immunization Notes Care Provider Sangeeta ribeiro 06-09-2010 tetanus toxoid, redu junior diphtheria toxoid, and acellular pertussis vaccine, adsorbed Stacey Negron PT Work Phone: [facility] Work Phone: 05-27-2002 diphtheria, tetanus toxoids and acellular pertussis vaccine Stacey Negron PT Work Phone: [facility] Work Phone: 05-27-2002 measles, mumps and rubella virus vaccine Stacey Negron PT Work Phone: [facility] Work Phone: 05-27-2002 poliovirus vaccine, inactivated Stacey Negron PT Work Phone: [facility] Work Phone: 09-10-1998 diphtheria, tetanus toxoids and acellular pertussis vaccine Stacey Negron PT Work Phone: [facility] Work Phone: 09-10-1998 haemophilus influenz ae type b vaccine, HbOC conjugate Stacey Negron PT Work Phone: [facility] Work Phone: 07-30-1998 measles, mumps and rubella virus vaccine Stacey Negron PT Work Phone: [facility] Work Phone: 07-30-1998 trivalent poliovirus vaccine, live, oral Stacey Jamil PT Work Phone: [facility] Work Phone: 07-30-1998 varicella virus vaccine Emily Negron PT Work Phone: [facility] Work Phone: 1997 hepatitis B vaccine, pediatric or pediatric/adolescent dosage Staceyjake Negron PT Work Phone: [facility] Work Phone: 1997 diphtheria, tetanus toxoids and acellular pertussis vaccine Staceyjake Negron PT Work Phone: [facility] Work Phone: 1997 haemophilus influenz ae type b vaccine, HbOC conjugate Stacey Jamil PT Work Phone: [facility] Work Phone: 1997 poliovirus vaccine, inactivated Staceyjake Negron PT Work Phone: [facility] Work Phone: 1997 diphtheria, tetanus toxoids and acellular pertussis vaccine Staceyjake Negron PT Work Phone: [facility] Work Phone: 1997 haemophilus influenz ae type b vaccine, HbOC conjugate Staceyjake Negron PT Work Phone: [facility] Work Phone: 1997 hepatitis B vaccine, pediatric or pediatric/adolescent dosage Stacey Negron PT Work Phone: [facility] Work Phone: 1997 poliovirus vaccine, inactivated Stacey Ngeron PT Work Phone: [facility] Work Phone: 1997 hepatitis B vaccine, pediatric or pediatric/adolescent dosage Stacey Negron PT Work Phone: [facility] Work Phone: Payers Date Payer Category Payer Unknown [facility] [id number] 2022-Present [phone] [address] [place] [address] PPO 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 Author Type: Physical Therapist Type: Progress Notes Filed: 07/19/2022 12:50 PM Note Text: 07/19/2022 [facility] REHABILITATION AND SPORTS THERAPY PHYSICAL THERAPY DISCONTINUANCE OF CARE Plan of Care Period: Start of Care Date: 04/18/22 Last Visit Date: 05/23/2022 Therapy Program: The following is a summary of the interventions provided for this episode of care; Therapeutic exercise Assessment: The following is the goal status: 05/16/2022 Goals for Episode of Care: created on 04/18/22 through 06/13/22 Pt will be able to ambulate without pain in 8 weeks or less - Not met, will continue Pt will be able to squat without pain in 8 weeks or less for return to Work - Not met, will continue [place] in home exercise program. - MET so far Patient Goals: Decrease the R knee pain Based on the most recent progress report, patient was progressing slower than expected toward functional goals based on pain levels, documented subjective information on progress, and documented objective information regarding range of motion and tissue tenderness. Reason for Discontinuation of Care: Patient has not returned to therapy or scheduled additional follow-up appointments. Stacey Negron PT [facility] 05-23-2022 Note HNO ID: [id number] Author: Stacey Negron PT Service: ? Author Type: Physical Therapist Type: Progress Notes Filed: 05/23/2022 11:17 AM Note Text: Episode Visit Count: 4 Therapist That Will Accept/Oversee The Plan Of Care: Stacey Negron Start of Care Date: 04/18/22 Onset Date: 10/16/21 Patient Identified by Name and Date of : Yes REHABILITATION AND SPORTS THERAPY PHYSICAL THERAPY TREATMENT NOTE ASSESSMENT: Adan Ayers tolerated the session with increased symptoms. He demonstrated difficulty with increased R knee pain with all therapeutic exercises. The patient will continue to benefit from ongoing skilled physical therapy to progress toward set goals. PLAN FOR NEXT VISIT: RLE strengthenign as tolerated SUBJECTIVE: Patient Reason for Visit: The knee iss till hurting to the same degree. Has a follow-up appoointment tomorrow with referring provided Pain: Pain Pain Level: 6 Pain Location: Knee - Right Post Treatment Pain Post Treatment Pain Location: Knee - Right OBJECTIVE MEASURES WITH LEVEL OF FUNCTION: TREATMENT: Therapeutic Exercise: 1: SciFit x 5 min no resistance 2: Supine quad set 2 x 10 3: Supine heel slides 2 x 10 reps 4: Sidelying hip abd 3 x 10 reps Skilled Intervention: Patient was educated in proper exercise technique and purpose for exercises. Correct performance of therapeutic exercises was facilitated with verbal and visual cuing. Billing Therapeutic Exercise Treatment Minutes: 30 Total Treatment Time Minutes (timed/untimed): 30 Stacey Negron PT [facility] 05-23-2022 History of Present illness Narrative Episode Visit Count: 4 Therapist That Will Accept/Oversee The Plan Of Care: Stacey Negron Start of Care Date: 04/18/22 Onset Date: 10/16/21 Patient Identified by Name and Date of : Yes REHABILITATION AND SPORTS THERAPY PHYSICAL THERAPY TREATMENT NOTE ASSESSMENT: Adan Ayers tolerated the session with increased symptoms. He demonstrated difficulty with increased R knee pain with all therapeutic exercises. The patient will continue to benefit from ongoing skilled physical therapy to progress toward set goals. PLAN FOR NEXT VISIT: RLE strengthenign as tolerated SUBJECTIVE: Patient Reason for Visit: The knee iss till hurting to the same degree. Has a follow-up appoointment tomorrow with referring provided Pain: Pain Pain Level: 6 Pain Location: Knee - Right Post Treatment Pain Post Treatment Pain Location: Knee - Right OBJECTIVE MEASURES WITH LEVEL OF FUNCTION: TREATMENT: Therapeutic Exercise: 1: SciFit x 5 min no resistance 2: Supine quad set 2 x 10 3: Supine heel slides 2 x 10 reps 4: Sidelying hip abd 3 x 10 reps Skilled Intervention: Patient was educated in proper exercise technique and purpose for exercises. Correct performance of therapeutic exercises was facilitated with verbal and visual cuing. Billing Therapeutic Exercise Treatment Minutes: 30 Total Treatment Time Minutes (timed/untimed): 30 Stacey Negron PT documented in this encounter [facility] 05-16-2022 Note HNO ID: [id number] Author: Stacey Negron PT Service: ? Author Type: Physical Therapist Type: Progress Notes Filed: 05/16/2022 9:58 AM Note Text: Episode Visit Count: 3 Therapist That Will Accept/Oversee The Plan Of Care: Stacey Negron Start of Care Date: 04/18/22 Onset Date: 10/16/21 Patient Identified by Name and Date of : Yes REHABILITATION AND SPORTS THERAPY PHYSICAL THERAPY PROGRESS REPORT PLAN OF CARE UPDATE: Assessment: Adan Ayers demonstrates difficulty with rising from a chair, walking, squatting, and working and improvements in none. He has not made improvements towards goals. Patient continues to present with impairments in independence in exercise, overall function, and symptom management that interfere with squatting, kneeling, carrying . Current prognosis is Good due to: current objective clinical presentation, good overall health status . He will benefit from continued skilled therapy services to meet the updated goals for this plan of care as noted below. 05/16/2022 Goals for Episode of Care: created on 04/18/22 through 06/13/22 Pt will be able to ambulate without pain in 8 weeks or less - Not met, will continue Pt will be able to squat without pain in 8 weeks or less for return to Work - Not met, will continue [facility] in home exercise program. - MET so far Patient Goals: Decrease the R knee pain Patient Goals: Decrease the R knee pain Planned Interventions, Frequency, and Duration: 2x/week, 4 weeks Total Number of Visits Planned: 8 Patient to be seen for Therapeutic exercise (89192), Neuromuscular re-education (72605), Manual therapy (35365), Gait Training ([id number]), Self-residential management ([id number]), Patient/Family/Caregiver Education PLAN FOR NEXT VISIT: LE strengthening as tolerated SUBJECTIVE: Patient Reason for Visit: The knee feels about the same. Exercises can make the pain worse at times. The pain is a little more sharp but the is uaually a dull pain. A lot fo popping in the knee. Difficulty kneeling. Patient Goals: Decrease the R knee pain Functional Limitations: squatting, kneeling, carrying Prior Level of Function: Independent without limitations Intake Information: Prescription present Previous Treatment: NSAIDs Falls Interview: Two or more falls in the last year Pain: Pain Pain Level: 5 Pain Location: Knee - Right Post Treatment Pain Post Treatment Pain Level: No Change Post Treatment Pain Location: Knee - Right PROMIS Scales T-scores: mean of general population = 50. 5 points is clinically meaningfully difference Percentiles provide an indication of how the patient's score ranks in relation to the general population. Higher percentile rankings indicate better function/quality of life. 50th percentile is the average of the general population and indicates half of respondents had a worse score. OBJECTIVE MEASURES WITH LEVEL OF FUNCTION: LE AROM R Knee Extension: 0 Degrees R Knee Flexion: 131 Degrees LE Joint Mobility R Patellar Mobility: WNL L Patellar Mobility: WNL LE Strength R LE Strength: Grossly 5/5 L LE Strength: Grossly 5/5 Special Tests - Knee Felipe's Test: Right Positive TREATMENT: Therapeutic Exercise: 1: All objective measures taken this session 2: Prone hip ext 2 x 10 reps 3: Supine quad set 2 x 10 holding 2 sec Skilled Intervention: Patient was educated in proper exercise technique and purpose for exercises. Correct performance of therapeutic exercises was facilitated with verbal and visual cuing. Billing Therapeutic Exercise Treatment Minutes: 42 Total Treatment Time Minutes (timed/untimed): 42 Stacey Negron PT [facility] 05-16-2022 History of Present illness Narrative Episode Visit Count: 3 Therapist That Will Accept/Oversee The Plan Of Care: Stacey Negron Start of Care Date: 04/18/22 Onset Date: 10/16/21 Patient Identified by Name and Date of : Yes REHABILITATION AND SPORTS THERAPY PHYSICAL THERAPY PROGRESS REPORT PLAN OF CARE UPDATE: Assessment: Adan Ayers demonstrates difficulty with rising from a chair, walking, squatting, and working and improvements in none. He has not made improvements towards goals. Patient continues to present with impairments in independence in exercise, overall function, and symptom management that interfere with squatting, kneeling, carrying . Current prognosis is Good due to: current objective clinical presentation, good overall health status . He will benefit from continued skilled therapy services to meet the updated goals for this plan of care as noted below. 05/16/2022 Goals for Episode of Care: created on 04/18/22 through 06/13/22 Pt will be able to ambulate without pain in 8 weeks or less - Not met, will continue Pt will be able to squat without pain in 8 weeks or less for return to Work - Not met, will continue [place] in home exercise program. - MET so far Patient Goals: Decrease the R knee pain Patient Goals: Decrease the R knee pain Planned Interventions, Frequency, and Duration: 2x/week, 4 weeks Total Number of Visits Planned: 8 Patient to be seen for Therapeutic exercise (60661), Neuromuscular re-education (61657), Manual therapy (42660), Gait Training (34421), Self-residential management (89602), Patient/Family/Caregiver Education PLAN FOR NEXT VISIT: LE strengthening as tolerated SUBJECTIVE: Patient Reason for Visit: The knee feels about the same. Exercises can make the pain worse at times. The pain is a little more sharp but the is uaually a dull pain. A lot fo popping in the knee. Difficulty kneeling. Patient Goals: Decrease the R knee pain Functional Limitations: squatting, kneeling, carrying Prior Level of Function: Independent without limitations Intake Information: Prescription present Previous Treatment: NSAIDs Falls Interview: Two or more falls in the last year Pain: Pain Pain Level: 5 Pain Location: Knee - Right Post Treatment Pain Post Treatment Pain Level: No Change Post Treatment Pain Location: Knee - Right PROMIS Scales T-scores: mean of general population = 50. 5 points is clinically meaningfully difference Percentiles provide an indication of how the patient's score ranks in relation to the general population. Higher percentile rankings indicate better function/quality of life. 50th percentile is the average of the general population and indicates half of respondents had a worse score. OBJECTIVE MEASURES WITH LEVEL OF FUNCTION: LE AROM R Knee Extension: 0 Degrees R Knee Flexion: 131 Degrees LE Joint Mobility R Patellar Mobility: WNL L Patellar Mobility: WNL LE Strength R LE Strength: Grossly 5/5 L LE Strength: Grossly 5/5 Special Tests - Knee Felipe's Test: Right Positive TREATMENT: Therapeutic Exercise: 1: All objective measures taken this session 2: Prone hip ext 2 x 10 reps 3: Supine quad set 2 x 10 holding 2 sec Skilled Intervention: Patient was educated in proper exercise technique and purpose for exercises. Correct performance of therapeutic exercises was facilitated with verbal and visual cuing. Billing Therapeutic Exercise Treatment Minutes: 42 Total Treatment Time Minutes (timed/untimed): 42 Stacey Negron PT documented in this encounter [facility] 05-02-2022 Note HNO ID: [id number] Author: Stacey Negron PT Service: ? Author Type: Physical Therapist Type: Progress Notes Filed: 05/02/2022 6:26 PM Note Text: Episode Visit Count: 2 Therapist That Will Accept/Oversee The Plan Of Care: Stacey Negron Start of Care Date: 04/18/22 Onset Date: 10/16/21 Patient Identified by Name and Date of : Yes REHABILITATION AND SPORTS THERAPY PHYSICAL THERAPY TREATMENT NOTE ASSESSMENT: Adan Ayers tolerated the session with fatigue and expected muscle soreness. He demonstrated difficulty with heel slides. The patient will continue to benefit from ongoing skilled physical therapy to progress toward set goals. PLAN FOR NEXT VISIT: SUBJECTIVE: Patient Reason for Visit: Pt reports that his knee is not feeling great today. Pt reports that he had a few good days last week. Pt states that pain is about 4 inches above and 4 inches below patella . Pt completed heel slides, number he got done was dependent on pain. Pain: Pain Pain Level: 6 Pain Location: Knee - Right Description: Dull, Sharp Frequency: Continuous Post Treatment Pain Post Treatment Pain Level: No Change Post Treatment Pain Location: Knee - Right Post Treatment Pain Description: Sore, Tightness OBJECTIVE MEASURES WITH LEVEL OF FUNCTION: TREATMENT: Therapeutic Exercise: 1: Heel slides with strap 3x10 2: SLR 3x10 RLE 3: Sidelying hip abduction 3x10 4: Prone hip extension 2x10 RLE 5: Attmepted quad sets, discontinued due to pain in lateral knee Skilled Intervention: Patient was educated in proper exercise technique and purpose for exercises. Reviewed and educated patient on additions/changes for home exercise program as above (*). Skilled judgment was provided in selection of appropriate interventions. Provided written instruction for home exercise program to facilitate proper performance and compliance. Correct performance of therapeutic exercises was facilitated with verbal and visual cuing. Billing Therapeutic Exercise Treatment Minutes: 40 Total Treatment Time Minutes (timed/untimed): 40 Jeannine Berry, RAPHAEL Negron, PT [facility] 05-02-2022 History of Present illness Narrative Episode Visit Count: 2 Therapist That Will Accept/Oversee The Plan Of Care: Stacey Negron Start of Care Date: 04/18/22 Onset Date: 10/16/21 Patient Identified by Name and Date of : Yes REHABILITATION AND SPORTS THERAPY PHYSICAL THERAPY TREATMENT NOTE ASSESSMENT: Adan R Ayers tolerated the session with fatigue and expected muscle soreness. He demonstrated difficulty with heel slides. The patient will continue to benefit from ongoing skilled physical therapy to progress toward set goals. PLAN FOR NEXT VISIT: SUBJECTIVE: Patient Reason for Visit: Pt reports that his knee is not feeling great today. Pt reports that he had a few good days last week. Pt states that pain is about 4 inches above and 4 inches below patella . Pt completed heel slides, number he got done was dependent on pain. Pain: Pain Pain Level: 6 Pain Location: Knee - Right Description: Dull, Sharp Frequency: Continuous Post Treatment Pain Post Treatment Pain Level: No Change Post Treatment Pain Location: Knee - Right Post Treatment Pain Description: Sore, Tightness OBJECTIVE MEASURES WITH LEVEL OF FUNCTION: TREATMENT: Therapeutic Exercise: 1: Heel slides with strap 3x10 2: SLR 3x10 RLE 3: Sidelying hip abduction 3x10 4: Prone hip extension 2x10 RLE 5: Attmepted quad sets, discontinued due to pain in lateral knee Skilled Intervention: Patient was educated in proper exercise technique and purpose for exercises. Reviewed and educated patient on additions/changes for home exercise program as above (*). Skilled judgment was provided in selection of appropriate interventions. Provided written instruction for home exercise program to facilitate proper performance and compliance. Correct performance of therapeutic exercises was facilitated with verbal and visual cuing. Billing Therapeutic Exercise Treatment Minutes: 40 Total Treatment Time Minutes (timed/untimed): 40 RAPHAEL Gomez PT documented in this encounter [facility] 04-18-2022 Note HNO ID: [id number] Author: Stacey Negron PT Service: ? Author Type: Physical Therapist Type: Progress Notes Filed: 04/18/2022 1:43 PM Note Text: Episode Visit Count: 1 Therapist That Will Accept/Oversee The Plan Of Care: Stacey Negron Start of Care Date: 04/18/22 Onset Date: 10/16/21 Patient Identified by Name and Date of : Yes REHABILITATION AND SPORTS THERAPY PHYSICAL THERAPY EVALUATION PLAN OF CARE: Assessment: Adan Ayers presents with chief complaint of R knee pain that interferes with squatting . He presents with impairments in ADL's, range of motion, and symptom management. Prognosis for therapy is Good due to: current objective clinical presentation, good overall health status . Pt demonstrates positive Apley's and McMurrays test on the L. He will benefit from skilled therapy services to meet the goals established for this plan of care as noted below. Goals for Episode of Care: created on 04/18/22 through 06/13/22 Pt will be able to ambulate without pain in 8 weeks or less Pt will be able to squat without pain in 8 weeks or less for return to work [place]inner in home exercise program. Patient Goals: Decrease the R knee pain Planned Interventions, Frequency, and Duration: Current Frequency: 1x every other week Duration: 4 weeks Total Number of Visits Planned: 2 Planned Treatment Interventions: Therapeutic exercise (12675), Neuromuscular re-education (52687), Manual therapy (73446), Self-residential management (31386), Patient/Family/Caregiver Education PLAN FOR NEXT VISIT: SLR strengthening in non-weightbearing position if tolerated Patient demonstrates good understanding of plan of care and treatment. The above goals and plan of care were discussed and agreed upon by patient/family. SUBJECTIVE: Adan Ayers is a 26 year old male seen today for R knee pain. Got a pop. The knee hurts all of the time. Popping in the knee. Has not given out. Morning is not bad. The night is the worst after being on it. After it first happened there was a lot of swelling. Went down after a couple days. Patient Goals: Decrease the R knee pain Functional Limitations: squatting Prior Level of Function: Independent without limitations Relevant History Preferred Language: Hebrew Intake Information: Prescription present Previous Treatment: NSAIDs Pain: Pain Pain Level: 4 Pain Location: Knee - Right Description: Dull PROMIS Scales T-scores: mean of general population = 50. 5 points is clinically meaningfully difference Percentiles provide an indication of how the patient's score ranks in relation to the general population. Higher percentile rankings indicate better function/quality of life. 50th percentile is the average of the general population and indicates half of respondents had a worse score. T-scores: mean of general population = 50. 5 points is clinically meaningfully difference Percentiles provide an indication of how the patient's score ranks in relation to the general population. Higher percentile rankings indicate better function/quality of life. 50th percentile is the average of the general population and indicates half of respondents had a worse score. OBJECTIVE MEASURES WITH LEVEL OF FUNCTION: Knee Observations R Knee Palpation Tenderness: Lateral joint line LE AROM R Knee Extension: 0 Degrees R Knee Flexion: 131 Degrees LE Joint Mobility R Patellar Mobility: WNL L Patellar Mobility: WNL LE Strength R LE Strength: Grossly 5/5 L LE Strength: Grossly 5/5 R Hip Extension: 4+/5 R Hip ABduction: 4+/5 Functional Strength Functional Strength: (able to perform squat but with pain) Special Tests - Knee Knee Special Tests: Felipe's Test, Apleys Test Apleys Test - Distraction: Right Negative Apleys Test - Compression: Right Positive Felipe's Test: Right Positive Gait Gait Observation: WNL Education: Education Learning Preferences: Demonstration, Explanation, Performance, Printed Materials Barriers: None Learning/educational needs: Home exercise program, Plan of Care Education Provided: Yes, see treatment interventions for education provided Education Provided To: Patient Education Mode/Type: Demonstration, Explanation/Discussion, Literature/Printed Materials, Performance Response to Education/Teach Back: States/Identifies, Return Demonstration TREATMENT: PT Treatment Interventions: Therapeutic Exercise Evaluation Therapeutic Exercise: 1: Discussed HEP, exam findings and anatomy of the knee. Explained symptoms of meniscal irritation/tear and expressed to pt what to avoid to stress this tissue. Discussed not to push through pain with any therapeutic exercise. 2: Supine Heel slides x 10 (worsening pain and so advised not to push as far through the motion with this or decrease number of reps per set) Skilled Intervention: Patient was educated in proper exercise technique and purpose (more content not included)... [facility] 04-18-2022 History of Present illness Narrative Episode Visit Count: 1 Therapist That Will Accept/Oversee The Plan Of Care: Stacey Negron Start of Care Date: 04/18/22 Onset Date: 10/16/21 Patient Identified by Name and Date of : Yes [facility] PHYSICAL THERAPY EVALUATION PLAN OF CARE: Assessment: Adan Ayers presents with chief complaint of R knee pain that interferes with squatting . He presents with impairments in ADL's, range of motion, and symptom management. Prognosis for therapy is Good due to: current objective clinical presentation, good overall health status . Pt demonstrates positive Apley's and McMurrays test on the L. He will benefit from skilled therapy services to meet the goals established for this plan of care as noted below. Goals for Episode of Care: created on 04/18/22 through 06/13/22 Pt will be able to ambulate without pain in 8 weeks or less Pt will be able to squat without pain in 8 weeks or less for return to work [place] in home exercise program. Patient Goals: Decrease the R knee pain Planned Interventions, Frequency, and Duration: Current Frequency: 1x every other week Duration: 4 weeks Total Number of Visits Planned: 2 Planned Treatment Interventions: Therapeutic exercise (90970), Neuromuscular re-education (90225), Manual therapy (47042), Self-residential management (29135), Patient/Family/Caregiver Education PLAN FOR NEXT VISIT: SLR strengthening in non-weightbearing position if tolerated Patient demonstrates good understanding of plan of care and treatment. The above goals and plan of care were discussed and agreed upon by patient/family. SUBJECTIVE: Adan Ayers is a 26 year old male seen today for R knee pain. Got a pop. The knee hurts all of the time. Popping in the knee. Has not given out. Morning is not bad. The night is the worst after being on it. After it first happened there was a lot of swelling. Went down after a couple days. Patient Goals: Decrease the R knee pain Functional Limitations: squatting Prior Level of Function: Independent without limitations Relevant History Preferred Language: Hebrew Intake Information: Prescription present Previous Treatment: NSAIDs Pain: Pain Pain Level: 4 Pain Location: Knee - Right Description: Dull PROMIS Scales T-scores: mean of general population = 50. 5 points is clinically meaningfully difference Percentiles provide an indication of how the patient's score ranks in relation to the general population. Higher percentile rankings indicate better function/quality of life. 50th percentile is the average of the general population and indicates half of respondents had a worse score. T-scores: mean of general population = 50. 5 points is clinically meaningfully difference Percentiles provide an indication of how the patient's score ranks in relation to the general population. Higher percentile rankings indicate better function/quality of life. 50th percentile is the average of the general population and indicates half of respondents had a worse score. OBJECTIVE MEASURES WITH LEVEL OF FUNCTION: Knee Observations R Knee Palpation Tenderness: Lateral joint line LE AROM R Knee Extension: 0 Degrees R Knee Flexion: 131 Degrees LE Joint Mobility R Patellar Mobility: WNL L Patellar Mobility: WNL LE Strength R LE Strength: Grossly 5/5 L LE Strength: Grossly 5/5 R Hip Extension: 4+/5 R Hip ABduction: 4+/5 Functional Strength Functional Strength: (able to perform squat but with pain) Special Tests - Knee Knee Special Tests: Felipe's Test, Apleys Test Apleys Test - Distraction: Right Negative Apleys Test - Compression: Right Positive Felipe's Test: Right Positive Gait Gait Observation: WNL Education: Education Learning Preferences: Demonstration, Explanation, Performance, Printed Materials Barriers: None Learning/educational needs: Home exercise program, Plan of Care Education Provided: Yes, see treatment interventions for education provided Education Provided To: Patient Education Mode/Type: Demonstration, Explanation/Discussion, Literature/Printed Materials, Performance Response to Education/Teach Back: States/Identifies, Return Demonstration TREATMENT: PT Treatment Interventions: Therapeutic Exercise Evaluation Therapeutic Exercise: 1: Discussed HEP, exam findings and anatomy of the knee. Explained symptoms of meniscal irritation/tear and expressed to pt what to avoid to stress this tissue. Discussed not to push through pain with any therapeutic exercise. 2: Supine Heel slides x 10 (worsening pain and so advised not to push as far through the motion with this or decrease number of reps per set) Skilled Intervention: Patient was educated in proper exercise technique and purpose for exercises. Provided written instruction for home exercise program to facilitate proper performance and compliance. Correct performance of therapeutic exercises was facilitated with verbal and visual cuing. Billing * Evaluation Low Complexity: 1 Unit Therapeutic Exercise Treatment Minutes: 24 Total Treatment Time Minutes (timed/untimed): 46 Stacey Negron PT documented in this encounter [facility] Diagnosis Right knee pain, unspecified chronicity- Primary [facility] Diagnosis Right knee pain, unspecified chronicity- Primary documented in this encounter [facility] note* Diagnosis Right knee pain, unspecified chronicity- Primary documented in this encounter [facility] Reason for Referral Specialty Diagnoses / Procedures Referred By Erwin padilla Referred To Contact [facility] Diagnoses Right knee pain, unspecified chronicity Procedures PT REHAB FOLLOW UP ORDER THERAPEUTIC EXERCISES RE, EA 15 MIN. Stacey Negron, PT [address] [place] [address] [facility] [address] [address] Referral ID Status Reason Start Date Expiration Date Visits Requested Visits Authorized [id number] Pending Review PCP Requested Referral Auto-Generate d Referral 04/18/2022 07/17/2022 1 1 Referral ID Status Reason Start Date Expiration Date Visits Requested Visits Authorized [id number] Pending Review PCP Requested Referral Auto-Generate d Referral 05/16/2022 08/14/2022 1 1 Summary Purpose Family History No Family History Records Found Advance Directives No Advanced Directives Records Found Additional Source Comments Source Comments (unrecognize d section and content) In the event this informatio n is protected by the Federal Confidentiality of Alcohol and Drug Abuse Patient Records regulations: The Federal rules restrict any use of the information to criminally investigate or prosecute any alcohol or drug abuse patient.[facility] the event this information is protected by the Federal Confidentiality of Alcohol and Drug Abuse Patient Records regulations: The Federal rules restrict any use of the information to criminally investigate or prosecute any alcohol or drug abuse patient.[facility] the event this information is protected by the Federal Confidentiality of Alcohol and Drug Abuse Patient Records regulations: The Federal rules restrict any use of the information to criminally investigate or prosecute any alcohol or drug abuse patient.[facility] the event this information is protected by the Federal Confidentiality of Alcohol and Drug Abuse Patient Records regulations: The Federal rules restrict any use of the information to criminally investigate or prosecute any alcohol or drug abuse patient.[facility] Reason for Visit (unrecogniz ed section and content) Specialty Diagnoses / Procedures Referred By Contac t Referred To Contact PHYSICAL THERAPY Diagnoses Evaluate and treat Procedures Evaluate and treat Thomas Marie [address] [facility] [address] [place] [address] Pt [facility] [address] [place] [id number] Referral ID Status Reason Start Date Expiration Date V isits Requested Visits Authorized [id number] Authorized 04/08/2022 03/19/2023 30 30 Reason Comments PT Eval Reason Comments Physical Therapy Specialty Diagnoses / Procedures Referred By Contac t Referred To Contact PHYSICAL THERAPY Diagnoses Evaluate and treat Procedures Evaluate and treat Thomas Marie [address] [facility] [address] [place] [address] Pt [facility] [address] [place] [address] Care Teams (unrecognized sec tion and content) (unrecognized sect ion and content) No Status Records Found INFORMATION SOURCE (unrecogn ized section and content) FOR RECORDS PERTAINING TO PATIENTS WHO ARE OR HAVE BEEN ENROLLED IN A CHEMICAL DEPENDENCY/SUBSTANCEABUSE PROGRAM, SOME INFORMATION MAY BE OMITTED. This clinical summary was aggregated from multiple sources. Caution should be exercised in using it in the provision of clinical care. This summary normalizes information from multiple sources, and as a consequence, information in this document may materially change the coding, format and clinical context of patient data. In addition, data may be omitted in some cases. CLINICAL DECISIONS SHOULD BE BASED ON THE PRIMARY CLINICAL RECORDS. [facility] [employer] provides no warranty or guarantee of the accuracy or completeness of information in this document.
--- NOTE | 2023-03-25 07:02 | MRI_ITS ---
STUDY: MRI LEFT KNEE REASON FOR EXAM: Male, 27 years old. Knee pain TECHNIQUE: Standardized fat and water weighted pulse sequences were obtained in all 3 orthogonal planes. COMPARISON: X-ray 03/21/2023 FINDINGS: 5 cm bucket-handle tear of the medial meniscus displaced into the intercondylar notch producing a double PCL sign. Normal hyaline cartilage of the medial femorotibial compartment. Normal medial femoral condyle and tibial plateau. Normal medial collateral ligamentous complex (MCL). Normal distal semimembranosus, gracilis and semitendinosus tendons. Normal lateral meniscus. Normal hyaline cartilage of the lateral femorotibial compartment. Normal lateral femoral condyle and tibial plateau. Normal proximal tibiofibular articulation. Normal lateral collateral ( fibular ) ligament. Normal popliteus tendon. Normal biceps femoris tendon. Normal anterior cruciate ligament (ACL). Normal posterior cruciate ligament (PCL). Normal congruent patellofemoral articulation. Normal hyaline cartilage of the patellofemoral compartment. Normal medial and lateral patellar retinaculum. Normal quadriceps tendon. Normal patellar tendon. Normal Hoffa''s fat pad. There is no joint effusion. Mild prepatellar soft tissue swelling. The otherwise visualized osseous structures are unremarkable. MRI/Lower Ext Joint Only (Routine) IMPRESSION: Large bucket-handle tear of the medial meniscus displaced into the intercondylar notch. Electronically Signed: Jorge Lai MD at 22:49 EST ,
== END | disposition home or self-care (01) ==
LOC: MRI 06:55
PROVIDERS: PCP Family Medicine; Referring Provider Orthopaedic Surgery Sports Medicine; Visit Provider Orthopaedic Surgery Sports Medicine
DX: M25.562 Pain in left knee (principal)
CPT/HCPCS: 73721

== ENCOUNTER 2023-05-09 08:00 | Outpatient (RCR) | payer OTHER, SELFPAY ==
--- NOTE | 2023-02-13 09:47 | HP.PTEVAL ---
Patient's Visit Information Visit Information Visit Information: ADAN AYERS is a 27 year old M referred to Physical Therapy by Dr. Alberto Pride MD with a diagnosis of R medial meniscus repair, DOS: 02/01/23. Date of Evaluation: 02/13/23 Physical Therapist: Tong Campbell DPT Visit Plan Frequency: 1-2x /Week Duration: 6 Weeks Plan: 1) focus on TKE, quad sets, edema control. Progressing to being able to complete SLR without LAG. 2) gait progression as tolerated. (Pt.to ambulate with TROM brace locked in extension) 3) Progress knee flexion once safe to do so. 4) RLE quad, hip strengthening. Subjective Subjective: Pt. is here today for his initial evaluation with diagnosis of R meniscal repair. Pt. arrives with use of 1 crutch and TROM brace locked in extension. DOS: 02/01/23. Pt. reports overall doing well, no N/T. He does report some instability, occasionally wanting to hyper extend. He reports putting a pillow under his knee at rest. Pt. is no longer icing. 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 He is sleeping okay. Wear brace consistently. He has not done much exercises at this point in time. Pt. hopeful to get back to all work and recreational activities without limitations. Pain R knee: Pain Intensity (Out of 10): 3 Pain Intensity Range: 1 and 6 Objective Objective: POSTURE: PT. has normal posture in stance. Pt. has increased wt. shift to L side. slight lack of TKE in stance. PALPATION: Incision looks good, no signs of infection. Pt. does have marked edema as expected (.5 inch difference at mid patella). NEURO: normal throughout. ROM: L knee: 0-0-138deg. R knee: 0-8-81deg actively. Passive: 0-4-83deg. No forceful flexion. Pain limiting further motion. MMT: Pt. has decent quad activation on R side, but not strong one. SLR x7 with slight quad lag and mild increase in joint pain. GAIT: Pt. is able to ambulate with TROM brace locked in extension. Good tolerance noted with use of 1 crutch. Balance/Special Test Scores Lower Extremity Functional Score: 27 Goals Goal 1:: LTG: Pt. to be I with HEP progressing ROM and strengthening as indicated. Goal Time Frame: 4-6 Weeks Goal 2:: STG: Pt. to have full R knee extension without increase in symptoms allowing for better gait pattern and safe environment for knee with functional mobility. Goal Time Frame: 2-4 Weeks Goal 3:: LTG: Pt. to have full R knee R ROM without increase in symptoms. Goal Time Frame: 4-6 Weeks Goal 4:: LTG: pt. to have symmetrical girth of BLEs indicating reduced overall joint swelling. Goal Time Frame: 4-6 Weeks Goal 5:: LTG: pt. to ambulate without AD with normal gait pattern without increase in symptoms. Goal Time Frame: 4-6 Weeks Goal 6:: LTG: pt. to have equal strength throughout BLEs allowing for increased R knee stability and reduced risk for future injury. Goal Time Frame: 4-6 Weeks Rehabilitation Potential Physical Therapy Diagnosis: Pt. has signs and symptoms consistent with R medial meniscus repair, DOS: 02/01/23. Pt. has marked hypomobility, weakness, difficulty with walking and increased edema. He would benefit from PT to work on the above issues allowing return to all work and recreational activities without limitations. Rehabilitation Potential: Excellent Anticipated Interventions Patient/Client Instruction: Educate patient on: Condition, Plan of Care, Risk Factors and Benefits of Fitness Program For the Purpose of:: To facilitate caregiver knowledge, To improve self management, To prevent re-injury, To improve ability to perform tasks related to life management and To improve tolerance to ADL's Therapeutic Exercise to Include: Strength training, Power training, Endurance training, Postural training, Flexibilty training, Passive ROM and Active ROM For the Purpose of:: To decrease pain, To increase ROM, To improve nutrient delivery to tissue, To increase oxygenation perfusion, To improve muscle performance and motor function and To improve ability to perform ADL's Other electric stimulation: Yes Cryotherapy (ice pack, ice massage): Yes Vasopneumatic device: Yes For the Purpose of:: To decrease pain, To decrease swelling/inflammation and To increase ROM Text: Thank you for the opportunity to evaluate your patient. For Medicare and Medicare HMO plans, please review the plan of care and approve it. It will need to be FAXED BACK to us at [phone] for Medicare purposes. For Medicare only, by signing this I certify the plan of care. Please let me know if there are questions or concerns regarding this plan of care. Physician Signature: Date:
--- NOTE | 2023-05-10 11:27 | HP.PTREVAL ---
Re-Evaluation Intro: Dr. Alberto Pride MD, It has been my pleasure to treat ADAN AYERS over the last 7 visits for R medial meniscus repair, DOS: 02/01/23. Please see the progress note below for an update on the physical therapy plan of care! Subjective Subjective: Pt reports having improved tolerance to standing and walking while on vacation. Wanting to start working next week and has upcoming appt. with surgeon, asked about cortisone for L knee to help with pain until he can get surgery on the winter. Objective Objective/Function: ROM: R knee flex 125, 0 deg ext MMT: symmetrical 5/5 hip and knee strength with no pain PALPATION: tenderness in distal lateral R HS near fibular head, but increased tissue extensibility OBSERVATIONS: some edema and decreased patellar definition in R knee Pt reported some increased pain in lateral knee with TB around ankle with hip ABD, instructed pt to move band up to knee to reduce varus force on knee. Pt had greatest discomfort with seated resisted HS curl and seated HS stretch with IR, instructed pt to only go to point of good pull and avoid forcing end range and further irritation of R meniscus. Plan Plan Plan: Pt to return in 4 weeks to re-assess pain, swelling, and strength following pt going back to work. Balance/Gait/Functional tests Balance/Special Test Scores Lower Extremity Functional Score: 27 Goals Goals Goal 1:: LTG: Pt. to be I with HEP progressing ROM and strengthening as indicated. Goal Time Frame: 4-6 Weeks Goal Progress: Goal Met Goal 2:: STG: Pt. to have full R knee extension without increase in symptoms allowing for better gait pattern and safe environment for knee with functional mobility. Goal Time Frame: 2-4 Weeks Goal Progress: Goal Met Goal 3:: LTG: Pt. to have full R knee R ROM without increase in symptoms. Goal Time Frame: 4-6 Weeks Goal Progress: Progressing Goal 4:: LTG: pt. to have symmetrical girth of BLEs indicating reduced overall joint swelling. Goal Time Frame: 4-6 Weeks Goal Progress: Progressing Goal 5:: LTG: pt. to ambulate without AD with normal gait pattern without increase in symptoms. Goal Time Frame: 4-6 Weeks Goal Progress: Goal Met Goal 6:: LTG: pt. to have equal strength throughout BLEs allowing for increased R knee stability and reduced risk for future injury. Goal Time Frame: 4-6 Weeks Goal Progress: Goal Met Anticipated Interventions Anticipated Interventions Patient/Client Instruction: Educate patient on: Condition, Plan of Care, Risk Factors and Benefits of Fitness Program For the Purpose of:: To facilitate caregiver knowledge, To improve self management, To prevent re-injury, To improve ability to perform tasks related to life management and To improve tolerance to ADL's Therapeutic Exercise to Include: Strength training, Power training, Endurance training, Postural training, Flexibilty training, Passive ROM and Active ROM For the Purpose of:: To decrease pain, To increase ROM, To improve nutrient delivery to tissue, To increase oxygenation perfusion, To improve muscle performance and motor function and To improve ability to perform ADL's Other electric stimulation: Yes Cryotherapy (ice pack, ice massage): Yes Vasopneumatic device: Yes For the Purpose of:: To decrease pain, To decrease swelling/inflammation and To increase ROM Re-Evaluation Ending Re-evaluation ending: Please do not hesitate to contact me at [phone] by phone or if you have questions or concerns regarding this new plan of care! Sincerely, Tong Campbell DPT
--- NOTE | 2023-06-29 14:11 | HP.PT.NRP ---
Patient Information Patient Information: ADAN AYERS was seen in my office for initial evaluation on 02/13/23. The following Plan of Care was established for this patient: POC Established Initial Frequency: 1-2x /Week Initial Duration: 6 Weeks Anticipated Interventions Patient/Client Instruction: Educate patient on: Condition, Plan of Care, Risk Factors and Benefits of Fitness Program For the Purpose of:: To facilitate caregiver knowledge, To improve self management, To prevent re-injury, To improve ability to perform tasks related to life management and To improve tolerance to ADL's Therapeutic Exercise to Include: Strength training, Power training, Endurance training, Postural training, Flexibilty training, Passive ROM and Active ROM For the Purpose of:: To decrease pain, To increase ROM, To improve nutrient delivery to tissue, To increase oxygenation perfusion, To improve muscle performance and motor function and To improve ability to perform ADL's Other electric stimulation: Yes Cryotherapy (ice pack, ice massage): Yes Vasopneumatic device: Yes For the Purpose of:: To decrease pain, To decrease swelling/inflammation and To increase ROM Last Seen Last Seen: This patient was last seen in our office 05/09/23. Pertinent comments regarding their Physical therapy will appear below: Pt. was seen in PT for his meniscal repair. Pt. was doing well, but still slightly sore. He was to follow up back with PT in a few weeks if having issues. He has not been back in ~6 weeks and will be DC from PT at this point in time. At this point I will be discontinuing this patient from physical therapy. I would be happy to see this patient again in the future if found appropriate by the physician. Thank you! Tong Campbell, DPT Balance/Gait/Functional tests Balance/Special Test Scores Lower Extremity Functional Score: 27
== END 2023-05-09 19:00 | disposition home or self-care (01) ==
LOC: PT 08:00
PROVIDERS: PCP Family Medicine; Referring Provider Orthopaedic Surgery Sports Medicine; Visit Provider Orthopaedic Surgery Sports Medicine
DX: S83.241D Other tear of medial meniscus, current injury, right knee, subsequent encounter (principal)
CPT/HCPCS: 97110; 97161; 97530

== ENCOUNTER → 2025-02-06 | Outpatient (CLI) | payer OTHER, SELFPAY ==
--- NOTE | 2025-02-06 16:54 | MRI_ITS ---
PROCEDURE: LOWER EXT JOINT ONLY (ROUTINE) 02/07/2025 REASON FOR EXAM: EVAL MCL TEAR OR REPEAT TEAR OF MEDIAL MENISCUS TECHNIQUE: Procedure Code: MRILEJ Modality: MR Procedure: LOWER EXT JOINT ONLY (ROUTINE) Multiplanar and multisequence images were obtained without IV contrast administration. COMPARISON: 25-Mar-2023 FINDINGS: Currently detected attenuated body and posterior horn of the medial meniscus showing high signal with tapering of its inner free margin, possibly post meniscectomy sequel. Associated linear high signal reaching its inferior articular surface worrisome of small meniscal inferior surface re-tear. Advise clinical correlation. Intact lateral meniscus. Intact medial collateral ligament with no obvious tears. Intact lateral collateral ligament. Intact anterior cruciate ligament. Intact posterior cruciate ligament. Intact retinacular ligaments. Intact patellar and quadriceps tendons. Mild knee joint effusion with no synovial hypertrophy. No marrow infiltrative lesions. Normal MR appearance of the noah-articular musculature with preserved inter- muscular fat planes. MRI/Lower Ext Joint Only (Routine) IMPRESSION: Currently detected attenuated body and posterior horn of the medial meniscus sh owing high signal with tapering of its inner free margin, possibly post meniscectomy sequel. Associated linear high signal reachi ng its inferior articular surface worrisome of small meniscal inferior surface re-tear. Advise clinical correlation. Intact medial collateral ligament with no obvious tears. Mild knee joint effusion. Reading [facility] [place] [address]
== END | disposition home or self-care (01) ==
LOC: MRI 16:52
PROVIDERS: PCP Family Medicine; Referring Provider Orthopaedic Surgery Sports Medicine; Visit Provider Orthopaedic Surgery Sports Medicine
DX: S83.241A Other tear of medial meniscus, current injury, right knee, initial encounter (principal); M25.561 Pain in right knee
CPT/HCPCS: 73721